=== PATIENT | female | born 1940 | race Caucasian/White ===

== ENCOUNTER 2019-04-17 10:44 | Outpatient (CLI) | payer MEDICARE, SELFPAY ==
--- NOTE | ~2019-04-17 | US_ITS ---
EXAMINATION: US venous doppler [facility] DATE: 04/17/2019 11:37 INDICATION: Lower limb swelling. TECHNIQUE: Grayscale ultrasound images without and with compression and Doppler ultrasound images of the bilateral lower extremity veins were obtained. COMPARISON: None. FINDINGS: The visualized portions of right common femoral vein, profunda (deep) femoral vein, femoral vein, pop liteal vein, peroneal veins, posterior tibial veins, and greater saphenous vein outflow are patent. The visualized portions of left common femoral vein, profunda femoral vein, femoral vein, popliteal v ein, peroneal veins, posterior tibial veins, and greater saphenous vein outflow are patent. IMPRESSION: 1. No deep venous thrombosis. Reviewed, dictated and finalized at location A. LE FIBER WASHER
--- NOTE | ~2019-04-17 | XR_ITS ---
EXAMINATION: XR chest 2V EXAM DATE: 04/17/2019 11:45 INDICATION: Shortness of breath. COPD. TECHNIQUE: Frontal and lateral projections of the chest obtained and reviewed. There is no prior frank dy for comparison. FINDINGS: The lungs are clear. There are no pleural effusions. The cardiomediastinal silhouette is within normal limits. There is no pneumothorax suspected. Mild thoracic spondylosis. Mild thoracolu mbar scoliosis. IMPRESSION: No acute cardiopulmonary findings. Reviewed, dictated and finalized at location A. R
--- NOTE | ~2019-04-17 | NM_ITS ---
EXAMINATION: NM lung vent and perfusion DATE: 04/17/2019 13:14 INDICATION: Shortness of breath. TECHNIQUE: The patient breathed 15.2 mCi xenon-133 for ventilation images. 5.1 mCi Tc-99m MAA was adm inistered intravenously for perfusion images. Scintigraphic images of the chest were obtained. COMPARISON: Chest 2 views 04/17/2019 FINDINGS: The single breath ventilation image demonstrates small defects in right upper lobe and right lower lo be. Ventilation washout images show diffuse retention bilaterally. Perfusion images show matched sma ll and moderate sized defects in the lower lobes and right upper lobe. ] IMPRESSION: 1. Low probability for pulmonary embolism. Reviewed, dictated and finalized at location A. LEWARE DEVELOPER
== END 2019-04-17 10:45 | disposition home or self-care (01) ==
PROVIDERS: Visit Provider Internal Medicine Critical Care Medicine
DX: M79.89 Other specified soft tissue disorders (principal); R06.82 Tachypnea, not elsewhere classified; R06.02 Shortness of breath
CPT/HCPCS: 71046; 78582; 93970; A9540; A9558

== ENCOUNTER 2019-04-20 12:14 | Outpatient (CLI) | payer MEDICARE, SELFPAY ==
--- NOTE | ~2019-04-20 | CT_ITS ---
EXAMINATION: CT chest high resolution [facility] EXAM DATE: 04/20/2019 15:33 INDICATION: Interstitial lung disease, shortness of breath, COPD. TECHNIQUE: Spiral CT of the chest without contrast. HRCT. Axial, coronal and sagittal images were rev iewed. Coronal maximum intensity pixel images of chest reviewed. The dose-length product (DLP) for this examination was 214.87 mGy-cm. The exposure was tailored according to patient size (auto mA exp osure control), and iterative reconstruction (ASIR) was used as additional dose reduction technique. There is no prior study for comparison. FINDINGS: There are several granulomas. The lungs are otherwise clear. There is mild emphysema and h yperinflation. No intralobular septal thickening. There are no pleural or pericardial effusions. Tr acheobronchial tree is patent. There is no mediastinal, hilar or axillary lymphadenopathy. There is no pneumothorax. Heart normal in size. No evidence of coronary arterial calcification. Small bilateral renal lesions which are indeterminate in density, could be proteinaceous cyst but not compl etely evaluated without contrast. Largest is exophytic on the left kidney measuring 2.1 cm. There is moderate thoracic spondylosis without osteoblastic or osteolytic lesions identified. IMPRESSION: 1. Mild emphysema and hyperinflation. 2. Small indeterminate renal lesions, largest on the left. Statistically most likely cysts but consi fuentes follow-up ultrasound. Reviewed, dictated and finalized at location B. TAX AUDITOR IMPRESSION: 1. Mild emphysema and hyperinflation. 2. Small indeterminate renal lesions, largest on the left. Statistically most likely cysts but consider follow-up ultrasound.
[2019-04-20 13:34] LABS: Alveolar/Arterial O2 Gradient 30.3 mmHg; Base Excess ABG 2.7 mEq/l (+/-2.0); Device ROOM AIR; Fractional Inspired Oxygen 21 %; HCO3 ABG 27.6 mEq/l (22.0-26.0); Modified Allen's Test Pass; Oxygen Saturation ABG 93.6 % (95.0-100.0); Oxyhemoglobin 91.6 % THb (90.0-100.0); PCO2 ABG 43.6 mmHg (35.0-45.0); PO2 ABG 67.2 mmHg (80.0-100.0); Site Drawn LEFT RADIAL; pH ABG 7.419 (7.350-7.450)
--- NOTE | 2019-04-20 13:40 | ECHO_ITS ---
Patient Info Name: Diane Vela Age: 78 years : 1940 Gender: Female Ht: 59 in Wt: 200 lbs BSA: 2.00 m2 HR: 78 bpm BP: 144 / 65 mmHg Heart Rhythm: Sinus Rhythm Technical Quality: Good Exam Date: 04/20/2019 2:13 PM Exam Location: [facility] Patient Status: Outpatient Admit Date: 04/20/2019 Staff Ordering Physician: Penny Arnett MD Bridge Rigger: Josselin Jaffe RDCS Attending Provider: Penny Arnett MD Referring Physician: Melquiades DANIEL; Exam Type: CA echo doppler color flow Study Info Indications - sob Complete two-dimensional, color flow and Doppler transthoracic echocardiogram is performed. Summary 1. Left ventricular systolic function is normal, estimated at 65-70%. 2. Left ventricular chamber dimension is normal. 3. Mild lipomatous hypertrophy of the atrial septum. 4. No valvular pathology. Left Ventricle Left ventricular chamber dimension is normal. Left ventricular systolic function is normal, estimated at 65-70%. Left ventricular septal wall motion is normal. Right Ventricle Right ventricular chamber dimension is normal. Left Atria Left atrial chamber dimension is mildly enlarged. Right Atria Right atrial chamber dimension is normal. Atrial Septum Mild lipomatous hypertrophy of the atrial septum. Aortic Valve The aortic valve is trileaflet. Pulmonic Valve The pulmonic valve is normal. Mitral Valve The mitral valve has normal leaflets. Tricuspid Valve The tricuspid valve leaflets are normal. Pericardium/Pleural The pericardium appears normal. Aorta The aortic root size at the sinus of Valsalva is normal. Left Ventricular Outflow Tract Name Value Normal LVOT 2D LVOT Diameter 2.0 cm LVOT Doppler LVOT Peak Gradient 9 mmHg LVOT Mean Gradient 5 mmHg LVOT VTI 32 cm LVOT VTI/AV VTI Ratio 0.8 LVOT Stroke Volume 103 ml LVOT CO 21.3 l/min LVOT CI 10.7 l/min/m2 Pulmonic Valve Name Value Normal PV Doppler PV Peak Gradient 3 mmHg Mitral Valve Name Value Normal MV Doppler MV Decel [place] 459 cm/s2 MV PHT 57 ms MV Area (PHT) 3.9 cm2 4.0-5.0 MV Diastolic Function MV E Peak Velocity 90 cm/s MV A Peak Velocity
[2019-04-20 13:45] VITALS: PULSE 71; O2SAT 94
[2019-04-20 13:48] VITALS: PULSE 88; O2SAT 86
[2019-04-20 13:50] VITALS: PULSE 97; O2SAT 92
[2019-04-20 13:55] VITALS: PULSE 88; O2SAT 95
[2019-04-20 13:59] LABS: Rheumatoid Factor < 8.6 IU/ML (<12)
--- NOTE | 2019-04-20 14:31 | HOMEO2EVAL ---
Home Oxygen Evaluation RC: Home Oxygen (O2) Evaluation Start: 04/20/19 14:28 Freq: Status: Active Protocol: RPE Activity Type Activity Date Activity User E-Sign Co-Sign Detail Recorded Client Recorded Date Recorded By Document 04/20/19 13:45 KRM [id number] 04/20/19 14:31 KRM Document 04/20/19 13:48 KRM [id number] 04/20/19 14:31 KRM Document 04/20/19 13:50 KRM [email or web address] 04/20/19 14:31 KRM Document 04/20/19 13:55 KRM [email or web address] 04/20/19 14:31 KRM 04/20/19 04/20/19 04/20/19 13:45 13:48 13:50 Home O2 Evaluation Test Phase Resting Exercise Exercise Oxygen Delivery Room Air Room Air Nasal Cannula Oxygen Flow Rate (L/min) 1 Pulse Oximetry (90-100 %) 94 86 L 92 Pulse Rate (60-100 beats/min) 71 88 97 Ambulation Distance (feet) 400 Home Oxygen Evaluation Comments FAILED 6 MIN WALK. Treatment Charges O2 Evaluation 04/20/19 13:55 Home O2 Evaluation Test Phase Resting Oxygen Delivery Room Air Oxygen Flow Rate (L/min) Pulse Oximetry (90-100 %) 95 Pulse Rate (60-100 beats/min) 88 Ambulation Distance (feet) Home Oxygen Evaluation Comments REQUIRES 1LPM W /ACTIVITY Treatment Charges
--- NOTE | 2019-04-21 23:26 | WPDPFTINT ---
PFT Interpretation PFT Interpretation: DOS: 04/20/2019 REQUESTING: Sohail Arnett REASON FOR TESTING: Shortness of breath, ILD PULMONARY FUNCTION TESTS Spirometry: Mild decrease in FEV1, 69%. Normal FVC 81%. FEV1% is decreased at 56%, consistent with airflow obstruction which is severe in the small airways, 22% predicted. No change with bronchodilator. Lung volumes: Mild hyperinflation, total lung capacity 123%. Residual volume severely increased 182% consistent with air trapping. Increased airway resistance 334%. Diffusion: DLCO moderately decreased, 60%. Flow volume loop: Severe scooping of the expiratory limb. IMPRESSION: Moderate obstructive ventilatory impairment with mild hyperinflation, moderate air trapping, moderate diffusion impairment. No response to bronchodilator. Lack of response to bronchodilator should not preclude use if clinically indicated. ARTERIAL BLOOD GAS: pH 7.42, pCO2 43.6, pO2 67.2, HCO3 27.6, oxygen saturation 93.6%, hemoglobin 14 grams/deciliter. This ABG on room air shows a primary metabolic alkalosis with appropriate respiratory compensation, mild hypoxemia. Penny Arnett MD
[2019-04-22 17:28] LABS: JO 1 Antibody <1.0; Scleroderma 70 Antibody <1.0
[2019-04-22 17:39] LABS: RNP Antibodies <1.0; SS-A <1.0; SS-B <1.0
[2019-04-23 04:58] LABS: Angiotensin Converting Enzyme 84 U/L (9-67)
[2019-04-23 09:54] LABS: Anti Glomerular Basement Memb <1.0 AI (<1.0)
[2019-04-23 10:10] LABS: Anti Centromere B Antibody <1.0
[2019-04-24 11:30] LABS: ANCA Screen Negative (Negative)
== END 2019-04-20 12:15 | disposition home or self-care (01) ==
PROVIDERS: PCP Internal Medicine; Visit Provider Internal Medicine Critical Care Medicine
DX: R06.02 Shortness of breath (principal); J84.9 Interstitial pulmonary disease, unspecified; J45.909 Unspecified asthma, uncomplicated; R94.2 Abnormal results of pulmonary function studies; J43.9 Emphysema, unspecified; R91.8 Other nonspecific abnormal finding of lung field; N28.9 Disorder of kidney and ureter, unspecified; I51.7 Cardiomegaly
CPT/HCPCS: 36415; 36600; 71250; 82164; 82785; 82805; 83520; 86003; 86021; 86038; 86225; 86235; 86430; 93306; 94060; 94618; 94726; 94729

== ENCOUNTER 2019-05-20 15:08 | Outpatient (CLI) | payer MEDICARE, SELFPAY ==
--- NOTE | ~2019-05-20 | US_ITS ---
EXAMINATION: US renal BI EXAM DATE: 05/20/2019 15:53 INDICATION: Renal lesions. TECHNIQUE: Multiple grayscale and Doppler images of the kidneys were obtained (by a technologist who performed the scan) and subsequently reviewed. Correlation is made to CT 04/20/2019. FINDINGS: Right kidney: There is normal contour and echogenicity. It measures 9.9 x 4.0 x 4.8 centimeters. The re is an 8 mm exophytic right renal anechoic lesion correlating to the CT finding, a cyst. There is no hydronephrosis. Left kidney: There is normal contour and echogenicity. It measures 9.8 x 4.9 x 5.7 centimeters. Ther e is an exophytic left renal cyst measuring 2.3 cm corresponding to the CT finding. There is no hyd ronephrosis. Bladder unremarkable. IMPRESSION: 1. Renal cysts bilaterally. No suspicious findings. Reviewed, dictated and finalized at location B.
== END 2019-05-20 15:09 | disposition home or self-care (01) ==
PROVIDERS: PCP Internal Medicine; Visit Provider Nurse Practitioner Family
DX: N28.1 Cyst of kidney, acquired (principal)
CPT/HCPCS: 76775

== ENCOUNTER 2020-03-21 07:41 | Outpatient (CLI) | payer MEDICARE, SELFPAY ==
[2020-03-21 08:30] VITALS: PULSE 87; O2SAT 94
[2020-03-21 08:35] VITALS: PULSE 106; O2SAT 87
[2020-03-21 08:38] VITALS: PULSE 116; O2SAT 94
[2020-03-21 08:45] VITALS: PULSE 93; O2SAT 94
--- NOTE | 2020-03-21 08:52 | HOMEO2EVAL ---
Home Oxygen Evaluation RC: Home Oxygen (O2) Evaluation Start: 03/21/20 08:49 Freq: Status: Active Protocol: RPE Activity Type Activity Date Activity User E-Sign Co-Sign Detail Recorded Client Recorded Date Recorded By Document 03/21/20 08:30 CHALO [id number] 03/21/20 08:52 CHALO Document 03/21/20 08:35 CHALO [email or web address] 03/21/20 08:52 CHALO Document 03/21/20 08:38 CHALO [email or web address] 03/21/20 08:52 CHALO Document 03/21/20 08:45 CHALO [email or web address] 03/21/20 08:52 CHALO 03/21/20 03/21/20 03/21/20 08:30 08:35 08:38 Home O2 Evaluation Test Phase Resting Exercise Exercise Oxygen Delivery Room Air Room Air Nasal Cannula Oxygen Flow Rate (L/min) 1 Pulse Oximetry (90-100 %) 94 87 L 94 Pulse Rate (60-100 beats/min) 87 106 H 116 H Activity Tolerance Good Rating of Perceived Dyspnea (PD) +3 Moderate Difficulty, But Can Continue Ambulation Distance (feet) Home Oxygen Evaluation Comments Treatment Charges O2 Evaluation 03/21/20 08:45 Home O2 Evaluation Test Phase Resting Oxygen Delivery Room Air Oxygen Flow Rate (L/min) Pulse Oximetry (90-100 %) 94 Pulse Rate (60-100 beats/min) 93 Activity Tolerance Rating of Perceived Dyspnea (PD) Ambulation Distance (feet) 500 Home Oxygen Evaluation Comments Pt requires 1 liter O2 with activity only Treatment Charges
--- NOTE | 2020-03-21 08:52 | PCRCNOTE ---
faxed O2 eval to Олег office staff
== END 2020-03-21 07:42 | disposition home or self-care (01) ==
PROVIDERS: PCP Internal Medicine; Visit Provider Nurse Practitioner Family
DX: R09.02 Hypoxemia (principal)
CPT/HCPCS: 94618

== ENCOUNTER 2022-10-08 14:26 | Emergency (ER) | payer MEDICARE, SELFPAY ==
[2022-10-08] VITALS (14 sets, daily range): BP systolic 116–119; BP diastolic 48–60; PULSE 104–111; RESP 19–29; TEMP 36.6; O2SAT 95–100
--- NOTE | ~2022-10-08 | XR_ITS ---
EXAMINATION: XR chest 2V Exam Date/Time: 10/08/2022 15:02 CDT HISTORY: SOB Comparison: 04/17/2019. RESULT: Lines, tubes, and devices: None. Lungs and pleura: Biapical pleural scarring. Calcified right upper lung granuloma. Senescent changes . Cardiomediastinal silhouette: Stable. Prominent central pulmonary arteries as can be seen with pulmo nary arterial hypertension. Other: No acute osseous or upper abdominal finding. IMPRESSION: No acute cardiopulmonary process. Reviewed, dictated and finalized at location K.
--- NOTE | 2022-10-08 14:42 | ECG_ITS ---
Measurements Intervals [place] Rate: 107 P: 61 [place]: 178 QRS: 80 QRSD: 132 T: 16 QT: 331 QTc: 443 Interpretive Statements SINUS TACHYCARDIA RIGHT BUNDLE BRANCH BLOCK BASELINE ARTIFACT- I, II, III, AVR, AVL, AVF, V2-V6 ABNORMAL ECG NO PREVIOUS ECG AVAILABLE FOR COMPARISON Electronically Signed On 10-08-2022 16:39:38 CDT by Romie Summers D.O.
--- NOTE | 2022-10-08 14:46 | ED.SOB ---
HPI - SOB/Dyspnea General Chief Complaint: Shortness of Breath/Dyspnea Stated Complaint: dyspnea Time Seen by Provider: 10/08/22 14:43 History of Present Illness HPI Narrative: Pt presents with SOB for last two hours after performing PFT's this morning. On EMS arrival pt sat 77%. Pt given neb and solumedrol and 8L oxygen (normally on 2-3). Pt feels better now. Pt denies fever or CP. Pt has long COPD history but no CHF. Related Data Home Medications Medication Instructions Recorded Confirmed ulxdlwcm-hjv-byylb ac 400 tablet PO 04/06/19 09/10/22 mcg-calcium carb 500 mg-vit K1 20 mcg tablet (Women's 50 Plus Multivitamin) calcium carbonate 600 mg calcium 600 mg PO DAILY 04/07/19 09/10/22 (1,500 mg) tablet (Calcium) omega-3 fatty acids 1,000 mg 1,000 mg PO DAILY 04/07/19 09/10/22 capsule (Fish Oil Concentrate) gabapentin 300 mg capsule 300 mg PO 09/10/22 09/10/22 Allergies Allergy/AdvReac Type Severity Reaction Status Date / Time terbinafine Allergy Severe Unknown Verified 10/08/22 14:41 Review of Systems Review of Systems: All systems reviewed & are unremarkable except as noted in HPI and below PMFSH Past Medical History Medical History Chronic hypoxemic respiratory failure COPD (chronic obstructive pulmonary disease) History of tobacco use Leg swelling Rhinitis Shortness of breath Uterine cancer Family History Family History Father Parkinson disease Alzheimer disease Mother Alzheimer disease Sibling Rheumatoid arthritis Social History Social History Smoking packs per day: 1 Smoking cigarettes per day: 20.0 Years smoked: 50 Smoking pack-years: 50.00 Smoking status: Former smoker Tobacco type: cigarettes Second hand tobacco smoke exposure: Yes Smoking end date: 03/11/08 Exam Const: General: healthy appearing Nutritional Appearance: well nourished Orientation/consciousness: patient oriented x3 Limitations: no limitations Eyes: EOM: EOMs intact bilaterally Neck: Neck: normal visual inspection and no lymphadenopathy Chest: Chest palpation & inspection: normal inspection of the chest Resp: Effort & Inspection: normal respiratory effort Auscultation: clear to auscultation bilaterally Cardio: Rate: regular rate Rhythm: regular rhythm GI: GI Palp: Yes Soft to palpation Auscultation: normal bowel sounds Skin: Rashes: no rashes Neuro: General: patient oriented x3, moves all extremities, no meningeal signs and no focal motor deficits Speech: normal speech Extrem: General: edema bilateral Psych: Mental Status: mental status grossly normal Affect: normal affect Attitude: cooperative Course Vital Signs Vital signs: Vital Signs Temperature 97.8 F 10/08/22 14:31 Pulse Rate 109 H 10/08/22 14:31 Respiratory Rate 28 H 10/08/22 14:31 Blood Pressure 119/60 10/08/22 14:31 Pulse Oximetry 100 10/08/22 14:31 Oxygen Delivery Nasal Cannula 10/08/22 14:31 Oxygen Flow Rate 4 10/08/22 14:31 Temperature 97.8 F 10/08/22 14:31 Pulse Rate 107 H 10/08/22 17:12 Respiratory Rate 20 10/08/22 17:12 Blood Pressure 116/48 L 10/08/22 17:12 Pulse Oximetry 95 10/08/22 17:12 Oxygen Delivery Nasal Cannula 10/08/22 14:31 Oxygen Flow Rate 4 10/08/22 14:31 MDM - SOB/Dyspnea MDM Narrative Medical decision making narrative: no pneumonia on x ray and labs look ok. Pt feels better and would like to try going home Differential Diagnosis Differential diagnosis: Likely acute exacerbation of chronic obstructive airways disease, congestive heart failure, community acquired pneumonia and asthma with exacerbation Medical Records Attestation: I reviewed the patient's medical records. Lab Data Attestation: I reviewed the patient's lab results. 10/08/22 14:50
[2022-10-08 14:58] LABS: Basophils Percent Auto 0.3 % (0.2-1.2); Eosinophils Absolute Auto 0.1 K/mm3 (0-0.3); Hematocrit 40.7 % (37.0-47.0); Immature Granulocyte Absolute 0.02 K/mm3 (0.00-0.031); Immature Granulocyte Percent A 0.3 % (0-0.5); Immature Platelet Fraction Pct 1.7 % (0.9-11.2); Lymphocytes Absolute Auto 1.48 K/mm3 (0.9-3.2); Lymphocytes Percent Auto 18.8 % (18.3-44.2); Mean Corpuscular HGB Conc 31.9 g/dl (32-36); Mean Corpuscular Hemoglobin 31.5 pg (26-34); Mean Corpuscular Volume 98.5 fl (80-100); Mean Platelet Volume 8.7 fl (7.4-10.4); Monocytes Absolute Auto 0.7 K/mm3 (0.1-0.6); Neutrophils Absolute Auto 5.6 K/mm3 (1.3-6.7); Neutrophils Percent Auto 70.6 % (45.5-73.1); Platelet Count Result 155 k/mm3 (150-375); Red Blood Count 4.13 M/mm3 (4.2-5.4); Red Cell Distribution Width 11.8 % (11.5-14.5); White Blood Count 7.9 K/mm3 (4.5-10.0)
[2022-10-08 15:12] LABS: Alanine Aminotransferase 21 U/L (6-35); Albumin Level 3.6 g/dL (3.5-5.1); Alkaline Phosphatase 92 U/L (38-126); Anion Gap -1 mmol/L (8-16); Aspartate Amino Transferase 30 U/L (14-36); Bilirubin,Total 0.5 mg/dL (0.2-1.3); Blood Urea Nitrogen 7 mg/dL (7-17); Calcium 8.7 mg/dL (8.4-10.2); Carbon Dioxide 38 mmol/L (22-30); Chloride 92 mmol/L (98-107); Estimated Glomerular Filt Rate > 60; Glucose 121 mg/dL (65-110); Potassium 4.1 mmol/L (3.4-5.0); Sodium 129 mmol/L (137-145)
[2022-10-08 15:24] LABS: NT Pro B Type Natriuretic Pept 235 pg/mL (19.9-100); Troponin I < 0.012 ng/mL (0.000-0.034)
== END 2022-10-08 17:10 | disposition home or self-care (01) ==
PROVIDERS: Emergency Provider Emergency Medicine; PCP Internal Medicine
DX: J44.9 Chronic obstructive pulmonary disease, unspecified (principal); J96.11 Chronic respiratory failure with hypoxia; Z85.42 Personal history of malignant neoplasm of other parts of uterus; Z87.891 Personal history of nicotine dependence; I45.10 Unspecified right bundle-branch block; R00.0 Tachycardia, unspecified
CPT/HCPCS: 36415; 71046; 80053; 83880; 84484; 85025; 85055; 93005; 99284

== ENCOUNTER 2022-12-23 04:38 | Emergency (ER) | payer MEDICARE, SELFPAY ==
[2022-12-23] VITALS (9 sets, daily range): BP systolic 106–132; BP diastolic 53–77; PULSE 94–106; RESP 18–35; TEMP 36.7; O2SAT 96–100
--- NOTE | ~2022-12-23 | XR_ITS ---
EXAMINATION: XR chest 1V portable DATE: 12/23/2022 05:17 INDICATION: Shortness of breath. TECHNIQUE: A single frontal view of the chest was obtained. COMPARISON: Chest 2 views 10/08/2022, chest CT 04/20/2019 FINDINGS: A calcified right lung nodule and calcified right hilar lymph nodes are consistent with old granulomatous disease. No pleural effusion or pneumothorax. The heart size is normal. IMPRESSION: 1. No acute cardiopulmonary disease. Reviewed, dictated and finalized at location E.
--- NOTE | 2022-12-23 04:48 | ECG_ITS ---
Measurements Intervals [place] Rate: 95 P: 54 [place]: 173 QRS: 61 QRSD: 138 T: 39 QT: 350 QTc: 442 Interpretive Statements SINUS RHYTHM RIGHT BUNDLE BRANCH BLOCK Electronically Signed On 12-23-2022 13:00:54 CDT by Carlito Barrera M.D.
[2022-12-23 04:58] LABS: Basophils Percent Auto 0.3 % (0.2-1.2); Eosinophils Absolute Auto 0.1 K/mm3 (0-0.3); Hematocrit 37.3 % (37.0-47.0); Hemoglobin 12.1 g/dL (12.0-15.0); Immature Granulocyte Absolute 0.01 K/mm3 (0.00-0.031); Immature Granulocyte Percent A 0.2 % (0-0.5); Lymphocytes Absolute Auto 2.49 K/mm3 (0.9-3.2); Lymphocytes Percent Auto 41.8 % (18.3-44.2); Mean Corpuscular HGB Conc 32.4 g/dl (32-36); Mean Corpuscular Hemoglobin 32.3 pg (26-34); Mean Corpuscular Volume 99.5 fl (80-100); Mean Platelet Volume 8.8 fl (7.4-10.4); Monocytes Absolute Auto 0.7 K/mm3 (0.1-0.6); Monocytes Percent Auto 11.3 % (2.6-8.5); Neutrophils Absolute Auto 2.6 K/mm3 (1.3-6.7); Neutrophils Percent Auto 44.4 % (45.5-73.1); Platelet Count Result 146 k/mm3 (150-375); Red Blood Count 3.75 M/mm3 (4.2-5.4); Red Cell Distribution Width 11.6 % (11.5-14.5)
[2022-12-23 05:12] LABS: Prothrombin Time 13.5 Seconds (11.1-14.7)
[2022-12-23 05:13] LABS: Partial Thromboplastin Time 28.1 SECONDS (22.3-36.8)
[2022-12-23 05:16] LABS: Alanine Aminotransferase 22 U/L (6-35); Albumin Level 3.8 g/dL (3.5-5.1); Alkaline Phosphatase 78 U/L (38-126); Anion Gap 4 mmol/L (8-16); Aspartate Amino Transferase 31 U/L (14-36); Bilirubin,Total 0.5 mg/dL (0.2-1.3); Blood Urea Nitrogen 9 mg/dL (7-17); Calcium 8.8 mg/dL (8.4-10.2); Carbon Dioxide 34 mmol/L (22-30); Chloride 97 mmol/L (98-107); Estimated Glomerular Filt Rate > 60; Glucose 100 mg/dL (65-110); Lipase 88 U/L (23-300); Potassium 4.2 mmol/L (3.4-5.0); Sodium 135 mmol/L (137-145)
[2022-12-23 05:27] LABS: Troponin I 0.017 ng/mL (0.000-0.034)
[2022-12-23] MEDS: methylPREDNISolone SOD SUCC 125 MG VIAL IV PUSH (05:29)
[2022-12-23] MEDS: ALBUTEROL SULFATE NEB 2.5 MG/3 ML INH INHALATION (05:35)
[2022-12-23] MEDS: IPRATROPIUM BR 0.02% INH SOLN 0.5 MG/2.5 ML VIAL INHALATION (05:35)
--- NOTE | 2022-12-23 06:07 | ED.GENADULT ---
HPI - General Adult General Chief complaint: Shortness of Breath/Dyspnea Stated complaint: difficulty breathing Time Seen by Provider: 12/23/22 05:16 History of Present Illness HPI narrative: Patient 82-year-old female who presents emergency department with chief complaint of shortness of breath. The patient reports she has history of COPD and wears nasal cannula oxygen patient states that today she started having a runny nose and nasal congestion and her nose was dripping so much that she had to take her oxygen off to blow her nose when that was being done the patient became extremely short of breath and called EMS. Patient reports she still feels short of breath and is moderately tachypneic at this time patient denies fever denies productive cough Related Data Home Medications Medication Instructions Recorded Confirmed cfkpczmw-off-npcew ac 400 tablet PO 04/06/19 09/10/22 mcg-calcium carb 500 mg-vit K1 20 mcg tablet (Women's 50 Plus Multivitamin) calcium carbonate 600 mg calcium 600 mg PO DAILY 04/07/19 09/10/22 (1,500 mg) tablet (Calcium) omega-3 fatty acids 1,000 mg 1,000 mg PO DAILY 04/07/19 09/10/22 capsule (Fish Oil Concentrate) gabapentin 300 mg capsule 300 mg PO 09/10/22 09/10/22 Allergies Allergy/AdvReac Type Severity Reaction Status Date / Time terbinafine Allergy Severe Unknown Verified 12/23/22 04:45 Review of Systems Review of Systems: A 10 system review of systems was completed on the patient and is negative except for what is stated in the HPI. Nursing and ancillary documentation was reviewed. [facility] Past Medical History Medical History Chronic hypoxemic respiratory failure COPD (chronic obstructive pulmonary disease) History of tobacco use Leg swelling Rhinitis Shortness of breath Uterine cancer Family History Family History Father Parkinson disease Alzheimer disease Mother Alzheimer disease Sibling Rheumatoid arthritis Social History Social History Smoking packs per day: 1 Smoking cigarettes per day: 20.0 Years smoked: 50 Smoking pack-years: 50.00 Smoking status: Former smoker Tobacco type: cigarettes Second hand tobacco smoke exposure: Yes Smoking end date: 03/11/08 Exam Narrative: GENERAL: Well-appearing, well-nourished, and in no acute distress. HEAD: Normocephalic, atraumatic. EYES: PERRLA and EOMI. ENT: Nares clear, no rhinorrhea or epistaxis. Mucous membranes moist. NECK: Supple. CHEST: Clear to auscultation. No respiratory distress. HEART: Regular rate and rhythm. No murmur heard. Normal peripheral pulses. ABDOMEN: Soft, nontender, nondistended, normal active bowel sounds. EXTREMITIES: Normal range of motion. No edema. SKIN: Warm, dry, no rash. NEURO: No focal deficits. Alert and oriented x3. PSYCH: Normal mood and affect. Course Vital Signs Vital signs: Vital Signs Temperature 36.7 C 12/23/22 04:34 Pulse Rate 94 12/23/22 04:34 Respiratory Rate 29 H 12/23/22 04:34 Pulse Oximetry 99 12/23/22 04:34 Oxygen Delivery Nasal Cannula 12/23/22 04:34 Oxygen Flow Rate 2 12/23/22 04:34 Temperature 36.7 C 12/23/22 04:34 Pulse Rate 106 H 12/23/22 06:41 Respiratory Rate 35 H 12/23/22 06:41 Blood Pressure 106/54 L 12/23/22 06:43 Pulse Oximetry 98 12/23/22 06:43 Oxygen Delivery Nasal Cannula 12/23/22 04:44 Oxygen Flow Rate 2 12/23/22 04:44 Medical Decision Making [facility] Narrative Medical decision making narrative: Differential diagnosis includes COVID-19 upper respiratory infection, pneumonia, COPD exacerbation. Patient was negative for COVID X-ray showed no focal infiltrate Laboratory studies were within normal limits troponin was 0.017 Patient was given Solu-Medrol and a breathing treatment
[2022-12-23 06:30] LABS: Influenza A QL RT-PCR Negative (Negative); Influenza B QL RT-PCR Negative (Negative); RSV RNA, RT-PCR Negative (Negative); SARS-CoV-2 RNA PCR Negative (Negative)
== END 2022-12-23 08:03 | disposition home or self-care (01) ==
PROVIDERS: Emergency Provider Emergency Medicine; PCP Physician Assistant
DX: J44.1 Chronic obstructive pulmonary disease with (acute) exacerbation (principal); J06.9 Acute upper respiratory infection, unspecified
CPT/HCPCS: 36415; 71045; 80053; 83690; 84484; 85025; 85610; 85730; 87637; 93005; 94640; 96374; 99284; J2930

== ENCOUNTER 2023-05-23 03:33 | Inpatient (IN) | payer MEDICARE, SELFPAY ==
[2023-05-23] VITALS (30 sets, daily range): BP systolic 119–146; BP diastolic 41–84; PULSE 87–128; RESP 15–30; TEMP 36.4–36.8; O2SAT 94–100
--- NOTE | ~2023-05-23 | XR_ITS ---
Portable chest x-ray Comparison: 12/23/2022 Clinical History: Dyspnea Findings: Lungs are clear, without focal consolidation or pleural effusion. Cardiomediastinal silho uette is stable. Bones and soft tissues are unremarkable. Impression: Clear lungs. Reviewed, dictated and finalized at location . Impression: Clear lungs.
--- NOTE | 2023-05-23 03:39 | ECG_ITS ---
Measurements Intervals [place] Rate: 98 P: 16 [place]: 143 QRS: 107 QRSD: 137 T: 38 QT: 333 QTc: 426 Interpretive Statements SINUS RHYTHM RIGHT AXIS DEVIATION RIGHT BUNDLE BRANCH BLOCK MINIMAL Q WAVES- ANTEROLATERAL LEADS BASELINE ARTIFACT- I, II, III, AVR, AVL, AVF, V1-V3 ABNORMAL ECG COMPARED TO ECG 12/23/2022 04:43:24 NO SIGNIFICANT CHANGES Electronically Signed On 05-23-2023 6:24:14 CDT by Romie Summers D.O.
--- NOTE | 2023-05-23 03:42 | ED.GENADULT ---
HPI - General Adult General Chief complaint: Shortness of Breath/Dyspnea Stated complaint: SOB Time Seen by Provider: 05/23/23 03:38 History of Present Illness HPI narrative: this is an 83-year-old female history of COPD on 2 L home oxygen presenting with shortness of breath. Patient has been having difficulty breathing since she went to bed. She denies fevers chills chest pain cough abdominal pain. She states she does not take any inhalers at home. Related Data Home Medications Medication Instructions Recorded Confirmed hpifxxuv-jiz-qdpce ac 400 tablet PO 04/06/19 05/22/23 mcg-calcium carb 500 mg-vit K1 20 mcg tablet (Women's 50 Plus Multivitamin) calcium carbonate 600 mg calcium 600 mg PO DAILY 04/07/19 05/22/23 (1,500 mg) tablet (Calcium) omega-3 fatty acids 1,000 mg 1,000 mg PO DAILY 04/07/19 05/22/23 capsule (Fish Oil Concentrate) gabapentin 300 mg capsule 300 mg PO 09/10/22 05/22/23 Allergies Allergy/AdvReac Type Severity Reaction Status Date / Time terbinafine Allergy Severe Unknown Verified 05/23/23 06:42 [facility] Past Medical History Medical History Chronic hypoxemic respiratory failure COPD (chronic obstructive pulmonary disease) History of tobacco use Leg swelling Rhinitis Shingles Shortness of breath Uterine cancer Family History Family History Father Parkinson disease Alzheimer disease Mother Alzheimer disease Sibling Rheumatoid arthritis Social History Social History Smoking packs per day: 1 Smoking cigarettes per day: 20.0 Years smoked: 50 Smoking pack-years: 50.00 Smoking status: Former smoker Tobacco type: cigarettes Second hand tobacco smoke exposure: Yes Smoking end date: 03/11/08 Exam Narrative: APPEARANCE: No apparent distress. Head: atraumatic. EYES: EOMI, NOSE: Atraumatic NECK: Trachea midline RESPIRATORY: Tachypneic, wheezing in all humphreys CARDIOVASCULAR: RRR, no peripheral edema ABDOMINAL: Non-distended, no peripheral edema MUSCULOSKELETAl: No obvious deformities NEURO: Alert. Moving 4/4 extremities SKIN:: Warm, dry. Normal color PSYCHIATRIC: Normal affect Course Vital Signs Vital signs: Vital Signs Temperature 98 F 05/23/23 03:33 Pulse Rate 99 05/23/23 03:33 Respiratory Rate 30 H 05/23/23 03:33 Blood Pressure 133/60 05/23/23 03:33 Pulse Oximetry 98 05/23/23 03:33 Oxygen Delivery Nasal Cannula 05/23/23 03:33 Oxygen Flow Rate 2 05/23/23 03:33 Temperature 98 F 05/23/23 03:33 Pulse Rate 102 H 05/23/23 06:27 Respiratory Rate 17 05/23/23 06:27 Blood Pressure 120/41 L 05/23/23 06:27 Pulse Oximetry 100 05/23/23 06:27 Oxygen Delivery Nasal Cannula 05/23/23 04:12 Oxygen Flow Rate 2 05/23/23 04:12 Medical Decision Making MDM Narrative Medical decision making narrative: -Course:83-year-old female history of COPD on home oxygen presenting with difficulty breathing. Wheezing on exam. Given hour long DuoNeb treatment, magnesium and steroids. On re-evaluation the patient still tachypneic and wheezing in all humphreys. Discussed admission versus discharge home patient will be placed in observation for further management. Case discussed with Dr. Hill. He requested venous blood gas. This has been orderd. Patient will be placed in medical observation for copd exacerbation. -DDX includes but is not limited to: COPD exacerbation, viral illness, pneumonia -Co-morbidities complicating care: COPD, medication noncompliance -Social determinants of health: retired, lives with her -Independent interpretation of studies: CBC normal. Metabolic panel showed a lung disease pattern. Viral swabs negative chest x-ray negative -Discussion of Management/Consultants: Dr. Meza - hospitalist -Interventions: hour long breathing t
[2023-05-23] MEDS: IPRATROPIUM BR 0.02% INH SOLN 0.5 MG/2.5 ML VIAL 1 MG INHALATION (03:49)
[2023-05-23] MEDS: ALBUTEROL SULFATE NEB 2.5 MG/3 ML INH 10 MG INHALATION (03:49)
[2023-05-23 03:50] LABS: Basophils Percent Auto 0.3 % (0.2-1.2); Eosinophils Absolute Auto 0.1 K/mm3 (0-0.3); Hematocrit 38.7 % (37.0-47.0); Hemoglobin 12.4 g/dL (12.0-15.0); Immature Granulocyte Absolute 0.03 K/mm3 (0.00-0.031); Immature Granulocyte Percent A 0.5 % (0-0.5); Lymphocytes Absolute Auto 2.06 K/mm3 (0.9-3.2); Lymphocytes Percent Auto 33.2 % (18.3-44.2); Mean Corpuscular Hemoglobin 30.2 pg (26-34); Mean Corpuscular Volume 94.4 fl (80-100); Mean Platelet Volume 9.2 fl (7.4-10.4); Monocytes Absolute Auto 0.5 K/mm3 (0.1-0.6); Monocytes Percent Auto 7.6 % (2.6-8.5); Neutrophils Absolute Auto 3.6 K/mm3 (1.3-6.7); Neutrophils Percent Auto 57.4 % (45.5-73.1); Platelet Count Result 122 k/mm3 (150-375); Red Cell Distribution Width 11.9 % (11.5-14.5); White Blood Count 6.2 K/mm3 (4.5-10.0)
[2023-05-23] MEDS: MAGNESIUM SULF 2 GM/WATER 50ML 2 GM/50 ML BAG IVPB (03:59)
[2023-05-23] MEDS: ACETAMINOPHEN 500 MG TABLET 1000 MG PO (04:00)
[2023-05-23] MEDS: SODIUM CHLORIDE 0.9% IV 1,000 ML 999 ML IV CONT (04:00)
[2023-05-23] MEDS: dexAMETHasone SOD PHOS INJ 10 MG/ML 1 ML VIAL IV PUSH (04:00)
[2023-05-23 04:25] LABS: Alanine Aminotransferase 15 U/L (6-35); Albumin Level 3.8 g/dL (3.5-5.1); Alkaline Phosphatase 103 U/L (38-126); Aspartate Amino Transferase 32 U/L (14-36); Bilirubin,Total 0.6 mg/dL (0.2-1.3); Blood Urea Nitrogen 14 mg/dL (7-17); Calcium 8.6 mg/dL (8.4-10.2); Carbon Dioxide > 40 mmol/L (22-30); Chloride 95 mmol/L (98-107); Estimated Glomerular Filt Rate > 60; Glucose 132 mg/dL (65-110); Potassium 4.3 mmol/L (3.4-5.0); Sodium 133 mmol/L (137-145)
[2023-05-23 04:28] LABS: Influenza A QL RT-PCR Negative (Negative); Influenza B QL RT-PCR Negative (Negative); RSV RNA, RT-PCR Negative (Negative); SARS-CoV-2 RNA PCR Negative (Negative)
[2023-05-23] MEDS: IPRATROPIUM 0.5 MG/ALBUTEROL SULFATE 2.5 MG AMPUL.NEB 3 ML INHALATION ×3 (07:36→19:34)
[2023-05-23 07:50] LABS: pH VBG 7.327 (7.300-7.400)
[2023-05-23 08:03] LABS: Device NASAL CANNULA; Fractional Inspired Oxygen 40 %; HCO3 VBG 32.8 mEq/l (24.0-30.0); PCO2 VBG 64.1 mmHg (42.0-48.0); PO2 VBG 40.4 mmHg (35.0-45.0)
--- NOTE | 2023-05-23 09:05 | ADMGEN ---
This patient, Orin Vela, was admitted to Medical Room 341-01. Patient/family oriented to hospital policies and general routines including ID bracelet, bed and alarms, visiting hours, pain management, procedures, bathroom and other care routines, personal items, smoking policy, room service/diet, and visiting hours. Information on how to activate the Rapid Response Team has been discussed. Patient/Family are encouraged to report perceived risks to care and to ask questions if they do not understand what they are told or what they should do.
--- NOTE | 2023-05-23 11:12 | PM.IMHP ---
H&P: HPI History of Present Illness Date/Time: 05/23/23 11:12 Chief Complaint: Patient brought to the ER via EMS for evaluation with worsening shortness of breath Narrative: She is a pleasant lady with history of COPD on home oxygen 2 liters/minute who is complaining of worsening shortness of breath since she went to bed last night. She woke up and her symptoms got worse. EMS was called and patient was brought to the ER for evaluation. According to the ER physician, she was the coughing a storm and had pretty bad wheezing. She is a chronic smoker and does use any inhalers at home. Workup was done with ABGs which showed findings consistent with COPD exacerbation. Patient was started on breathing treatment and IV steroids and is being admitted for medical management, close monitoring and further work up. Review of Systems Review of Systems: 14 systems were reviewed with pertinent positives and negatives per HPI. Except as documented in the HPI/progress notes, all other systems were reviewed and are negative. All systems reviewed & are unremarkable except as noted in HPI and below PMFSH Past Medical History Medical History Chronic hypoxemic respiratory failure COPD (chronic obstructive pulmonary disease) History of tobacco use Leg swelling Rhinitis Shingles Shortness of breath Uterine cancer Family History Family History Father Parkinson disease Alzheimer disease Mother Alzheimer disease Sibling Rheumatoid arthritis Social History Social History Smoking packs per day: 1 Smoking cigarettes per day: 20.0 Years smoked: 50 Smoking pack-years: 50.00 Smoking status: Former smoker Second hand tobacco smoke exposure: Yes Alcohol intake: never Substance use: never Do You Feel Safe in your Home?: Yes Lack of Transportation: No Lack of Food: Never True Current Housing: I Have Housing Concerned About Future Housing: No Difficulty Paying Gas/Electric Bills: No Difficulty Paying for Meds: No Currently Unemployed: No Education: Grade School Difficulty w/ Childcare or Family Care: No Spiritual care concerns: No Meds Home Medications and Allergies Home Medications Medication Instructions Recorded Confirmed Type eaegbgyi-dsw-vwrug ac 400 tablet PO 04/06/19 05/22/23 History mcg-calcium carb 500 mg-vit K1 20 mcg tablet (Women's 50 Plus Multivitamin) omega-3 fatty acids 1,000 mg 1,000 mg PO DAILY 04/07/19 05/22/23 History capsule (Fish Oil Concentrate) albuterol sulfate 2.5 mg/3 mL 2.5 mg (3 mL) inhalation .once 03/30/20 05/22/23 Rx (0.083 %) solution for nebulization daily #30 mL arformoterol 15 mcg/2 mL solution 2 ml inhalation Q12H #60 mL 03/30/20 05/22/23 Rx for nebulization (Brovana) albuterol sulfate 90 mcg/actuation 1 - 2 puff inhalation Q4-6H PRN 05/29/22 05/22/23 Rx aerosol inhaler (ProAir HFA) shortness of breath or wheezing #8.5 grams gabapentin 300 mg capsule 300 mg PO 09/10/22 05/22/23 History clotrimazole 1 % topical cream 1 applic topical Q12H 2 weeks #45 05/22/23 05/22/23 Rx grams prednisone 10 mg tablet 10 mg PO DIRECTED #30 tabs 05/22/23 05/22/23 Rx revefenacin 175 mcg/3 mL solution 175 mcg (3 mL) inhalation DAILY 05/22/23 05/22/23 Rx for nebulization (Yupelri) #90 mL budesonide 0.5 mg/2 mL suspension 0.5 mg inhalation Q12H 05/23/23 05/23/23 History for nebulization ibuprofen 200 mg tablet (Advil) 200 mg PO BID 05/23/23 05/23/23 History tea tree oil 100 % topical 1 ea topical QID PRN nerve pain 05/23/23 05/23/23 History Allergies Allergy/AdvReac Type Severity Reaction Status Date / Time terbinafine Allergy Severe Unknown Verified 05/23/23 06:42 Vital Signs Vital Signs - 24 hr 05/23/23 03:33 05/23/23 03:52 05/23/23 04:12 Temperature 36.6 C Pulse Rate 99 96
[2023-05-23] MEDS: methylPREDNISolone SOD SUCC 125 MG VIAL 60 MG IV PUSH ×3 (12:11→23:15)
[2023-05-23] MEDS: ACETAMINOPHEN 325 MG TABLET 650 MG PO (12:11)
[2023-05-23] MEDS: BUDESONIDE RESPULE NEB 0.5 MG/2 ML AMP INHALATION ×2 (14:17→19:36)
[2023-05-23] MEDS: OMEGA 3 POLYUNSAT FATTY ACIDS 1 GM CAP PO (14:57)
[2023-05-23] MEDS: MICONAZOLE NITRATE 2% CREAM 30 GM TUBE 1 APPLIC TOPICAL ×2 (14:57→22:05)
[2023-05-23] MEDS: IBUPROFEN 200 MG TABLET PO ×2 (14:57→16:59)
[2023-05-23] MEDS: PREGABALIN (*CRX) 75 MG CAPSULE 150 MG PO (16:59)
--- NOTE | 2023-05-23 20:34 | PC.NURSE ---
Nicotine patch order discontinued. In turn the transdermal patch intervention was completed of the worklist.
[2023-05-24] VITALS (10 sets, daily range): BP systolic 134–146; BP diastolic 43–62; PULSE 80–89; RESP 20–22; TEMP 36.2–36.8; O2SAT 96–100
[2023-05-24] MEDS: ACETAMINOPHEN 325 MG TABLET 650 MG PO ×2 (02:20→11:46)
[2023-05-24] MEDS: methylPREDNISolone SOD SUCC 125 MG VIAL 60 MG IV PUSH ×3 (05:14→21:21)
[2023-05-24 06:43] LABS: Basophils Percent Auto 0.1 % (0.2-1.2); Hemoglobin 12.3 g/dL (12.0-15.0); Immature Granulocyte Absolute 0.04 K/mm3 (0.00-0.031); Immature Granulocyte Percent A 0.5 % (0-0.5); Lymphocytes Absolute Auto 0.75 K/mm3 (0.9-3.2); Lymphocytes Percent Auto 9.5 % (18.3-44.2); Mean Corpuscular HGB Conc 32.4 g/dl (32-36); Mean Corpuscular Hemoglobin 29.9 pg (26-34); Mean Corpuscular Volume 92.2 fl (80-100); Mean Platelet Volume 9.3 fl (7.4-10.4); Monocytes Absolute Auto 0.4 K/mm3 (0.1-0.6); Monocytes Percent Auto 5.2 % (2.6-8.5); Neutrophils Absolute Auto 6.7 K/mm3 (1.3-6.7); Neutrophils Percent Auto 84.7 % (45.5-73.1); Platelet Count Result 132 k/mm3 (150-375); Red Blood Count 4.12 M/mm3 (4.2-5.4); Red Cell Distribution Width 11.9 % (11.5-14.5); White Blood Count 7.9 K/mm3 (4.5-10.0)
[2023-05-24 07:13] LABS: Anion Gap -3 mmol/L (8-16); Blood Urea Nitrogen 15 mg/dL (7-17); Carbon Dioxide 39 mmol/L (22-30); Chloride 98 mmol/L (98-107); Estimated Glomerular Filt Rate > 60; Glucose 132 mg/dL (65-110); Magnesium 2.4 mg/dL (1.6-2.3); Phosphorus 2.7 mg/dL (2.5-4.5); Potassium 4.4 mmol/L (3.4-5.0); Sodium 134 mmol/L (137-145)
[2023-05-24] MEDS: PREGABALIN (*CRX) 75 MG CAPSULE 150 MG PO ×2 (08:39→17:32)
[2023-05-24] MEDS: IBUPROFEN 200 MG TABLET PO ×2 (08:39→17:32)
[2023-05-24] MEDS: OMEGA 3 POLYUNSAT FATTY ACIDS 1 GM CAP PO (08:39)
[2023-05-24] MEDS: THERAPEUTIC MULTIVITAMINS/MINERALS TAB (*BKC) 1 TABLET PO (08:39)
[2023-05-24] MEDS: ENOXAPARIN 40 MG/0.4 ML SYRINGE SUB-Q (08:40)
[2023-05-24] MEDS: MICONAZOLE NITRATE 2% CREAM 30 GM TUBE 1 APPLIC TOPICAL ×2 (08:42→21:22)
[2023-05-24] MEDS: IPRATROPIUM 0.5 MG/ALBUTEROL SULFATE 2.5 MG AMPUL.NEB 3 ML INHALATION ×3 (09:21→22:36)
[2023-05-24] MEDS: BUDESONIDE RESPULE NEB 0.5 MG/2 ML AMP INHALATION ×2 (09:22→22:36)
[2023-05-24] MEDS: LIDOCAINE 5% PATCH 1 PATCH TRANSDERM (11:49)
--- NOTE | 2023-05-24 18:21 | PM.IMPN ---
Progress Note: A&P Assessment and Plan (1) Non compliance w medication regimen: Code(s): Z91.148 - Patient's other noncompliance with medication regimen for other reason Status: Acute (2) COPD (chronic obstructive pulmonary disease): Code(s): J44.9 - Chronic obstructive pulmonary disease, unspecified Status: Acute (3) Chronic hypoxemic respiratory failure: Code(s): J96.11 - Chronic respiratory failure with hypoxia Status: Acute (4) Sleep disturbance: Code(s): G47.9 - Sleep disorder, unspecified Status: Acute (5) Hypoxia: Code(s): R09.02 - Hypoxemia Status: Acute (6) Rhinitis: Code(s): J31.0 - Chronic rhinitis Status: Acute (7) Leg swelling: Code(s): M79.89 - Other specified soft tissue disorders Status: Acute (8) Tachypnea: Code(s): R06.82 - Tachypnea, not elsewhere classified Status: Acute (9) Shortness of breath: Code(s): R06.02 - Shortness of breath Status: Acute (10) History of tobacco use: Code(s): Z87.891 - Personal history of nicotine dependence Status: Acute Plan Admit patient to a medical unit under full inpatient status Oxygen via nasal cannula ordered to keep O2 sats more than 92% Dexamethasone 10 with IV x 1 dose given in the ER Solu-Medrol 60 Mg IV q6 hrs started on the floor which has being tapered down to 60 mg IV q.12 hours Continue with rocephin 1 gram IV daily Sputum cultures ordered Follow-up on blood and sputum cultures DuoNeb breathing treatments ordered as needed Ambulate on the floor with assistance DC planning once patient is medically stable and breathing is back to baseline ? Patient seen and examined at bedside during my morning rounds ? Collaborated with patient's nurse at the bedside in detail and addressed all concerns ? Labs, electrolytes, radiology, investigations and test results reviewed ? Consult/Nursing/Ancilliary notes on the chart reviewed and appreciated Repeat labs in a.m. Electrolyte replacement as per protocol. Patient will be monitored very closely on the floor. Further recommendations as per the hospital course. Time Spent With Patient Time with patient: 15 - 25 minutes Subjective Date/time seen: 05/24/23 18:21 Interval history: Patient lying in bed during my morning rounds. Her cough is slowly improving. Shortness of breath is improving as well. Still has some wheezing Review of Systems Review of Systems: 14 systems were reviewed with pertinent positives and negatives per HPI. Except as documented in the HPI/progress notes, all other systems were reviewed and are negative. All systems reviewed & are unremarkable except as noted in HPI and below Exam Narrative: PHYSICAL EXAMINATION: Vital signs: Please see the chart General physical exam: Obese white female, lying in bed, feeling weak tired and fatigued, has audible wheezing and cough Head/eyes: Atraumatic, EOMI, PERRLA ENT: Moist mucous membranes, nasal passages clear Neck: Supple, full range of motion, trachea midline CVS: S1 + S2, regular rate and rhythm, no murmurs Respiratory: Bilaterally poor air entry in both lung humphreys, mild B/L crackles, symmetric chest expansion, + scattered bilateral wheezing Abdomen: Soft, non-tender, bowel sounds +ve, no organomegaly Extremities: No clubbing, no cyanosis, no edema, no calf tenderness Musculoskeletal: Moves all, adequate range of motion, no muscle spasms Skin: Warm, dry, no jaundice, no cyanosis Neurological: Awake, alert, oriented x 3, cranial nerves II-XII intact, no focal neurological deficits Psychiatric: Normal mood, non suicidal Objective Data Vital Signs Vital Signs: Vital Signs - 24 hr 05/23/23 19:36 05/23/23 19:36 05/23/23 19:52 Temperature Pulse Rate 91 87 Respiratory Rate 18 18 Blood Pressure Pulse Oximetry 94 Oxygen Delivery Nasal Cannula Oxygen Flow Rate 2 05/23/23 20:00 05/23/23 20:
[2023-05-25] VITALS (10 sets, daily range): BP systolic 140–142; BP diastolic 51–65; PULSE 75–90; RESP 18–20; TEMP 36.3–36.7; O2SAT 94–96
[2023-05-25] MEDS: IPRATROPIUM 0.5 MG/ALBUTEROL SULFATE 2.5 MG AMPUL.NEB 3 ML INHALATION ×3 (03:18→14:46)
[2023-05-25 06:02] LABS: Hematocrit 39.4 % (37.0-47.0); Hemoglobin 12.8 g/dL (12.0-15.0); Immature Granulocyte Absolute 0.04 K/mm3 (0.00-0.031); Immature Granulocyte Percent A 0.5 % (0-0.5); Immature Platelet Fraction Pct 2.6 % (0.9-11.2); Lymphocytes Absolute Auto 0.66 K/mm3 (0.9-3.2); Lymphocytes Percent Auto 7.7 % (18.3-44.2); Mean Corpuscular HGB Conc 32.5 g/dl (32-36); Mean Corpuscular Volume 92.5 fl (80-100); Mean Platelet Volume 9.5 fl (7.4-10.4); Monocytes Absolute Auto 0.6 K/mm3 (0.1-0.6); Monocytes Percent Auto 6.7 % (2.6-8.5); Neutrophils Absolute Auto 7.3 K/mm3 (1.3-6.7); Neutrophils Percent Auto 85.1 % (45.5-73.1); Platelet Count Result 143 k/mm3 (150-375); Red Blood Count 4.26 M/mm3 (4.2-5.4); Red Cell Distribution Width 12.4 % (11.5-14.5); White Blood Count 8.5 K/mm3 (4.5-10.0)
[2023-05-25] MEDS: ACETAMINOPHEN 325 MG TABLET 650 MG PO (06:02)
[2023-05-25 06:17] LABS: Anion Gap -2 mmol/L (8-16); Blood Urea Nitrogen 25 mg/dL (7-17); Carbon Dioxide 36 mmol/L (22-30); Chloride 99 mmol/L (98-107); Estimated Glomerular Filt Rate > 60; Glucose 135 mg/dL (65-110); Potassium 4.4 mmol/L (3.4-5.0); Sodium 133 mmol/L (137-145)
[2023-05-25] MEDS: THERAPEUTIC MULTIVITAMINS/MINERALS TAB (*BKC) 1 TABLET PO (09:01)
[2023-05-25] MEDS: OMEGA 3 POLYUNSAT FATTY ACIDS 1 GM CAP PO (09:02)
[2023-05-25] MEDS: PREGABALIN (*CRX) 75 MG CAPSULE 150 MG PO (09:02)
[2023-05-25] MEDS: IBUPROFEN 200 MG TABLET PO (09:02)
[2023-05-25] MEDS: ENOXAPARIN 40 MG/0.4 ML SYRINGE SUB-Q (09:02)
[2023-05-25] MEDS: methylPREDNISolone SOD SUCC 125 MG VIAL 60 MG IV PUSH (09:03)
[2023-05-25] MEDS: LIDOCAINE 5% PATCH 1 PATCH TRANSDERM (09:03)
[2023-05-25] MEDS: MICONAZOLE NITRATE 2% CREAM 30 GM TUBE 1 APPLIC TOPICAL (09:04)
[2023-05-25] MEDS: BUDESONIDE RESPULE NEB 0.5 MG/2 ML AMP INHALATION (09:09)
[2023-05-25] MEDS: SODIUM CHLORIDE 0.9% IV 1,000 ML 125 ML IV CONT (10:24)
--- NOTE | 2023-05-25 14:14 | PM.DS ---
DS: Admitting Diagnosis Discharge Date 05/25/2023: Admitting Diagnosis (1) Non compliance w medication regimen: ?Code(s): Z91.148 - Patient's other noncompliance with medication regimen for other reason ?Status:?Acute (2) COPD (chronic obstructive pulmonary disease): ?Code(s): J44.9 - Chronic obstructive pulmonary disease, unspecified ?Status:?Acute (3) Chronic hypoxemic respiratory failure: ?Code(s): J96.11 - Chronic respiratory failure with hypoxia ?Status:?Acute (4) Sleep disturbance: ?Code(s): G47.9 - Sleep disorder, unspecified ?Status:?Acute (5) Hypoxia: ?Code(s): R09.02 - Hypoxemia ?Status:?Acute (6) Rhinitis: ?Code(s): J31.0 - Chronic rhinitis ?Status:?Acute (7) Leg swelling: ?Code(s): M79.89 - Other specified soft tissue disorders ?Status:?Acute (8) Tachypnea: ?Code(s): R06.82 - Tachypnea, not elsewhere classified ?Status:?Acute (9) Shortness of breath: ?Code(s): R06.02 - Shortness of breath ?Status:?Acute DS: Discharge Diagnosis Discharge Diagnosis (1) Non compliance w medication regimen: Code(s): Z91.148 - Patient's other noncompliance with medication regimen for other reason Status: Acute (2) COPD (chronic obstructive pulmonary disease): Code(s): J44.9 - Chronic obstructive pulmonary disease, unspecified Status: Acute (3) Chronic hypoxemic respiratory failure: Code(s): J96.11 - Chronic respiratory failure with hypoxia Status: Acute (4) Sleep disturbance: Code(s): G47.9 - Sleep disorder, unspecified Status: Acute (5) Hypoxia: Code(s): R09.02 - Hypoxemia Status: Acute (6) Rhinitis: Code(s): J31.0 - Chronic rhinitis Status: Acute (7) Leg swelling: Code(s): M79.89 - Other specified soft tissue disorders Status: Acute (8) Tachypnea: Code(s): R06.82 - Tachypnea, not elsewhere classified Status: Acute (9) Shortness of breath: Code(s): R06.02 - Shortness of breath Status: Acute (10) History of tobacco use: Code(s): Z87.891 - Personal history of nicotine dependence Status: Acute DS: Summary Hospital Course Reason for hospitalization: Patient brought to the ER via EMS for evaluation with worsening shortness of breath Hospital Course: H&P: HPI History of Present Illness Date/Time: 05/23/23? 11:12 Chief Complaint: Patient brought to the ER via EMS for evaluation with worsening shortness of breath Narrative: She is a pleasant lady with history of COPD on home oxygen 2 liters/minute who is complaining of worsening shortness of breath since she went to bed last night.? She woke up and her symptoms got worse.? EMS was called and patient was brought to the ER for evaluation.? According to the ER physician, she was the coughing a storm and had pretty bad wheezing.? She is a chronic smoker and does use any inhalers at home. Workup was done with ABGs which showed findings consistent with COPD exacerbation.? Patient was started on breathing treatment and IV steroids and is being admitted for medical management, close monitoring and further work up. 05/24/2023: Admit patient to a medical unit under full inpatient status Oxygen via nasal cannula ordered to keep O2 sats more than 92% Dexamethasone 10 with IV x 1 dose given in the ER Solu-Medrol 60 Mg IV q6 hrs started on the floor which has being tapered down to 60 mg IV q.12 hours Continue with rocephin 1 gram IV daily Sputum cultures ordered Follow-up on blood and sputum cultures DuoNeb breathing treatments ordered as needed Ambulate on the floor with assistance DC planning once patient is medically stable and breathing is back to baseline 05/25/2023: Patient is feeling better today. Her cough and shortness of breath has improved. She is currently on 2 L oxygen via nasal cannula which is her baseline and holding oxygen saturations in high 90
== END 2023-05-25 15:02 | disposition home or self-care (01) | DRG 191 ==
LOC: ANHED 06:38 → ANH3MED 08:36
PROVIDERS: Admitting Provider Internal Medicine; Emergency Provider Emergency Medicine; PCP Physician Assistant; Visit Provider Family Medicine
DX: J44.1 Chronic obstructive pulmonary disease with (acute) exacerbation (principal); J96.11 Chronic respiratory failure with hypoxia; Z68.41 Body mass index [BMI] 40.0-44.9, adult; F17.210 Nicotine dependence, cigarettes, uncomplicated; Z91.148 Patient's other noncompliance with medication regimen for other reason; Z99.81 Dependence on supplemental oxygen; Z85.42 Personal history of malignant neoplasm of other parts of uterus; E66.9 Obesity, unspecified; Z20.822 Contact with and (suspected) exposure to COVID-19
CPT/HCPCS: 36415; 71045; 80048; 80053; 82803; 83735; 84100; 85025; 85055; 87637; 93005; 94640; 96365; 96375; 99285; A9270; G0378; J0696; J1100; J1650; J2930; J3475; J7030